=== PATIENT | female | born 1975 | race African-American/Black ===

== ENCOUNTER 2020-08-12 15:23 | Outpatient (CLI) | payer OTHER, SELFPAY ==
--- NOTE | ~2020-08-12 | MM_ITS ---
EXAMINATION: MM screening eliana BI w jarred HISTORY: Screening TECHNIQUE: Craniocaudal and mediolateral oblique 3-D tomosynthesis images were obtained and synthetic 2-D images were generated. CAD analysis was submitted and interpreted. COMPARISON: Comparison to multiple prior studies sequentially, with oldest reviewed study dated 05/18. BREAST PARENCHYMAL COMPOSITION: There are scattered areas of fibroglandular density. FINDINGS: There are stable benign-appearing right breast calcifications. There is no evidence of susp icious mass, calcification, or architectural distortion to suggest malignancy in either breast. There has been no suspicious interval change. IMPRESSION: 1. No mammographic evidence of malignancy. 2. Recommend routine screening mammography in one year. BI-RADS Category 1: Negative Reviewed, dictated and finalized at location A. OTYPIST
== END 2020-08-12 15:24 | disposition home or self-care (01) ==
LOC: ANHIMG 15:24
PROVIDERS: PCP Family Medicine; Visit Provider Obstetrics & Gynecology
DX: Z12.31 Encounter for screening mammogram for malignant neoplasm of breast (principal)
CPT/HCPCS: 77063; 77067

== ENCOUNTER 2021-08-14 15:53 | Outpatient (CLI) | payer OTHER, SELFPAY ==
--- NOTE | ~2021-08-14 | MM_ITS ---
EXAMINATION: MM screening eliana BI w jarred HISTORY: Screening mammogram TECHNIQUE: Craniocaudal and mediolateral oblique 3-D tomosynthesis images were obtained and synthetic 2-D images were generated. CAD analysis was submitted and interpreted. COMPARISON: 08/12/2020 BREAST PARENCHYMAL COMPOSITION: The breasts are almost entirely fatty. FINDINGS: There is no evidence of suspicious mass, calcification, or architectural distortion to sugg est malignancy in either breast. There has been no suspicious interval change. IMPRESSION: 1. No mammographic evidence of malignancy. 2. Recommend routine screening mammography in one year. BI-RADS Category 1: Negative Reviewed, dictated and finalized at location A. CATION NURSE
== END 2021-08-14 15:54 | disposition home or self-care (01) ==
LOC: ANHIMG 15:54
PROVIDERS: PCP Family Medicine; Visit Provider Obstetrics & Gynecology
DX: Z12.31 Encounter for screening mammogram for malignant neoplasm of breast (principal)
CPT/HCPCS: 77063; 77067

== ENCOUNTER 2021-08-20 00:28 | Day surgery (SDC) | payer OTHER, SELFPAY ==
[2021-08-08 12:10] VITALS: BMI 46.7
[2021-08-20 10:51] VITALS: BP 172/85; PULSE 84; RESP 18; TEMP 36.1; O2SAT 100
--- NOTE | 2021-08-20 11:04 | P.PNAN_ITS ---
Anes - Initial Pre Proc Eval Procedure: Operation Date: 08/20/21 12:30 Proposed Procedures p Screening Colonoscopy - Alejandro Hoover MD Date/Time: 08/20/21 11:04 Surgeon: Alejandro Hoover MD Pre Op Diagnosis: neoplasm screening Patient Data Age: 46 Gender: F Height: 1.8 m Weight: 156.2 kg Last Vital Signs Temp 97 F L 08/20/21 10:51 Pulse 84 08/20/21 10:51 Resp 18 08/20/21 10:51 BP 172/85 H 08/20/21 10:51 Pulse Ox 100 08/20/21 10:51 Allergies Allergy/AdvReac Type Severity Reaction Status Date / Time No Known Allergies Allergy Mild Verified 08/20/21 10:49 Home Medications Medication Instructions Recorded Confirmed Type insulin glargine 100 unit/mL (3 44 unit SUBCUT BID 07/04/20 08/08/21 History mL) subcutaneous pen metformin 1,000 mg tablet 1,000 mg PO BID 07/04/20 08/08/21 History montelukast 10 mg tablet 10 mg PO DAILY 07/04/20 08/08/21 History amlodipine 5 mg tablet 5 mg PO DAILY 07/08/21 08/20/21 History insulin lispro 100 unit/mL 16 unit SUBCUT TID 07/08/21 08/08/21 History subcutaneous pen Patient hx anesthesia problems: none Family hx anesthesia problems: none Results Review: All pre-operative results and documents have been reviewed as part of the pre-operative evaluation. [facility] Past Medical History Medical History Diabetes Hypertension Surgical History Surgical History Previous section x 2 Tubal ligation status Family History Family History Father Hypertension Cerebrovascular accident, Onset Age: 70 Family history of diabetes mellitus in first degree relative Patient's father is Mother Family history of elevated blood lipids Family history of kidney disease Grandparent Family history of malignant neoplasm of breast Social History Social History (Updated 07/08/21 @ 13:22 by Mere Scott CMA) Smoking status: Former smoker Tobacco type: cigarettes Second hand tobacco smoke exposure: No Alcohol intake: never Alcohol use details: occasionally Living arrangements: with family Spiritual care concerns: No Anes - Eval Final PreProcedure Day of Procedure 08/20/21 11:04 Patient weight: morbidly obese Heart: regular rate and rhythm Lungs: clear to auscultation Airway: Mallampati scale class III Neurological: alert and oriented Last oral intake: >/= 8 hours ASA classification: III Emergent: no Anesthetic plan: proceed Anesthesia type and monitoring: general GIVS and standard monitoring Results Review: All pre-operative results and documents have been reviewed as part of the pre-operative evaluation. Informed Consent: The patient's anesthetic plan and its attendant risks and benefits were discussed with the patient/family/POA. Questions were solicited and answers provided to the satisfaction of the patient/family/POA.
[2021-08-20] MEDS: LACTATED RINGERS 1,000 ML 150 ML IV CONT (11:10)
--- NOTE | 2021-08-20 11:10 | PM.HPGS ---
History of Present Illness History of Present Illness Consent: Risks, benefits, and alternatives have been discussed and questions answered. Patient agrees to proceed with procedure. Chief complaint: neoplasm screening Narrative: Henny Hudson is a 46 year old female here for first screening colonoscopy Review of Systems Constitutional: Constitutional: Denies headache(s) and Denies weakness Eyes: Eyes: Denies blurry vision ENT: Reports Normal hearing present, Denies headache(s) and Denies neck pain Cardiovascular: Cardiovascular: Denies chest pain and Denies dyspnea Respiratory: Respiratory: Denies dyspnea Gastrointestinal: Gastrointestinal: Reports no additional gastrointestinal complaints Genitourinary: Genitourinary: Denies dysuria Musculoskeletal: Musculoskeletal: Denies neck pain Integumentary/Breasts: Skin/Breast: Denies dry skin Neurologic: Reports Normal hearing present, Denies headache(s) and Denies weakness Psychiatric: Psychiatric: Denies anxiety Endocrine: Endocrine: Denies change in body appearance Hematologic/Lymphatic: Hematologic/Lymphatic: Denies easy bleeding Allergic/Immunologic: Allergic/Immunologic: Denies urticaria PMF Past Medical History Medical History (Updated 08/20/21 @ 11:11 by Alejandro Hoover MD) Colon cancer screening Diabetes Hypertension Surgical History Surgical History Previous section x 2 Tubal ligation status Family History Family History Father Hypertension Cerebrovascular accident, Onset Age: 70 Family history of diabetes mellitus in first degree relative Patient's father is Mother Family history of elevated blood lipids Family history of kidney disease Grandparent Family history of malignant neoplasm of breast Social History Social History (Updated 07/08/21 @ 13:22 by Mere Scott CMA) Smoking status: Former smoker Tobacco type: cigarettes Second hand tobacco smoke exposure: No Alcohol intake: never Alcohol use details: occasionally Living arrangements: with family Spiritual care concerns: No Meds Home Medications and Allergies Home Medications Medication Instructions Recorded Confirmed Type insulin glargine 100 unit/mL (3 44 unit SUBCUT BID 07/04/20 08/08/21 History mL) subcutaneous pen metformin 1,000 mg tablet 1,000 mg PO BID 07/04/20 08/08/21 History montelukast 10 mg tablet 10 mg PO DAILY 07/04/20 08/08/21 History amlodipine 5 mg tablet 5 mg PO DAILY 07/08/21 08/20/21 History insulin lispro 100 unit/mL 16 unit SUBCUT TID 07/08/21 08/08/21 History subcutaneous pen Allergies Allergy/AdvReac Type Severity Reaction Status Date / Time No Known Allergies Allergy Mild Verified 08/20/21 10:49 Vital Signs Vital Signs - 24 hr 08/20/21 10:51 Temperature 97 F L Pulse Rate 84 Respiratory Rate 18 Blood Pressure 172/85 H Pulse Oximetry 100 Exam Const: General: comfortable and no acute distress HENMT: General nose exam: Normal nares present Eyes: General: appearance normal, both eyes and all related structures Neck: Neck: no JVD Resp: Auscultation: clear to auscultation bilaterally Cardio: Rate: regular rate Rhythm: regular rhythm GI: Inspection: non-distended GI Palp: Yes Soft to palpation Skin: General skin exam: normal color Neuro: General: gait normal Speech: normal speech Extrem: General: normal to inspection Psych: Mental Status: mental status grossly normal Assessment and Plan Assessment and plan (1) Colon cancer screening: Code(s): Z12.11 - Encounter for screening for malignant neoplasm of colon Status: Acute Assessment and Plan: colonoscopy
[2021-08-20 11:12] LABS: Glucose Point of Care 230 mg/dl (65-105)
[2021-08-20 11:27] VITALS: BP 150/120; PULSE 106; RESP 24; O2SAT 99
[2021-08-20 11:37] VITALS: BP 152/93; PULSE 101; RESP 19; O2SAT 100
[2021-08-20 11:44] LABS: Glucose Point of Care 231 mg/dl (65-105)
[2021-08-20 11:47] VITALS: BP 174/107; PULSE 104; RESP 27; O2SAT 100
== END 2021-08-20 11:52 | disposition home or self-care (01) ==
PROVIDERS: PCP Family Medicine; Visit Provider Internal Medicine Gastroenterology
PROC: 0DJD8ZZ Inspection of Lower Intestinal Tract, Via Natural or Artificial Opening Endoscopic (ICD-10-PCS; CPT 45378; principal; 2021-08-20 12:30)
DX: Z12.11 Encounter for screening for malignant neoplasm of colon (principal); E11.9 Type 2 diabetes mellitus without complications; I10 Essential (primary) hypertension; K64.8 Other hemorrhoids
CPT/HCPCS: 45378; 82948; J2704; J7120

== ENCOUNTER 2022-10-15 15:09 | Outpatient (CLI) | payer OTHER, SELFPAY ==
--- NOTE | ~2022-10-15 | MM_ITS ---
EXAMINATION: MM screening eliana BI w jarred HISTORY: Screening mammogram TECHNIQUE: Craniocaudal and mediolateral oblique 3-D tomosynthesis images were obtained and synthetic 2-D images were generated. CAD analysis was submitted and interpreted. COMPARISON: 08/14/2021, 08/12/2020, 08/10/2018 bilateral screening mammogram examinations BREAST PARENCHYMAL COMPOSITION: The breasts are almost entirely fatty. FINDINGS: There is no evidence of suspicious mass, calcification, or architectural distortion to sugg est malignancy in either breast. There has been no suspicious interval change. IMPRESSION: 1. No mammographic evidence of malignancy. 2. Recommend routine screening mammography in one year. BI-RADS Category 1: Negative Reviewed, dictated and finalized at location A. BOOKKEEPER
== END 2022-10-15 15:10 | disposition home or self-care (01) ==
PROVIDERS: PCP Family Medicine; Visit Provider Obstetrics & Gynecology
DX: Z12.31 Encounter for screening mammogram for malignant neoplasm of breast (principal)
CPT/HCPCS: 77063; 77067

== ENCOUNTER 2024-02-28 14:01 | Outpatient (CLI) | payer OTHER, SELFPAY ==
--- NOTE | ~2024-02-28 | MM_ITS ---
EXAMINATION: MM screening eliana BI w jarred HISTORY: Screening mammogram TECHNIQUE: Craniocaudal and mediolateral oblique 3-D tomosynthesis images were obtained and synthetic 2-D images were generated. CAD analysis was submitted and interpreted. COMPARISON: 10/15/2022, 08/14/2021, 08/12/2020 BREAST PARENCHYMAL COMPOSITION:Not Dense. The breasts are almost entirely fatty FINDINGS: No suspicious mass, calcification, or architectural distortion are identified in either marilu ast to suggest malignancy. There has been no suspicious interval change. IMPRESSION: No mammographic evidence of malignancy. Recommend routine screening mammography in one year. BI-RADS Category 1: Negative Reviewed, dictated and finalized at location .
== END 2024-02-28 14:02 | disposition home or self-care (01) ==
LOC: ANHIMG 14:02
PROVIDERS: PCP Family Medicine; Visit Provider Obstetrics & Gynecology
DX: Z12.31 Encounter for screening mammogram for malignant neoplasm of breast (principal)
CPT/HCPCS: 77063; 77067

== ENCOUNTER 2025-05-09 15:20 | Outpatient (CLI) | payer OTHER, SELFPAY ==
--- NOTE | ~2025-05-09 | MM_ITS ---
EXAMINATION: MM screening eliana BI w jarred HISTORY: Screening TECHNIQUE: Craniocaudal and mediolateral oblique 3-D tomosynthesis images were obtained and synthetic 2-D images were generated. CAD analysis was submitted and interpreted. COMPARISON: Comparison to multiple prior studies sequentially, with oldest reviewed study dated , 08/10/2018 BREAST PARENCHYMAL COMPOSITION: The breasts are almost entirely fatty. FINDINGS: There is no evidence of suspicious mass, calcification, or architectural distortion to suggest malignancy in either breast. IMPRESSION: 1. No mammographic evidence of malignancy. 2. Recommend routine screening mammography in one year. BI-RADS Category 1: Negative Reviewed, dictated and finalized at location B.
--- OUTSIDE RECORDS SUMMARY | 2025-05-09 15:44 | XMS_ITS | Clinical Summary ---
Author Organization [facility] Address [address] [place] [address] Care Team Providers Care Binder Operator Name Role Phone Suhail Rice MD Primary Care Provider [phone] Source Comments [facility],non-owned Affiliates and Associated Physician Practices is amultiple site organization consisting of ambulatory clinics and hospital sitesin [place], [place], [place] and [place]. This disclosure is being madepursuant to the Care Everywhere program and may not contain all information available regarding this patient. Last updated 18.[facility] Allergies Active Allergy Reactions Criticality Noted Date Comments Lisinopril Rash Medium 09/09/2018 Medications * Be aware that medications may not be up to date on this document. Alwaysverify current medications with the patient. BASAGLAR KWIKPEN (BASAGLAR) pen Inject 80 (eighty) Units subcutaneously 2 times daily 08/01/20 18 Active B-D ULTRAFINE III SHORT PEN 31G X 8 MM needle 08/31/19 19 Active metFORMIN (GLUCOPHAGE) 1000 MG tablet Take 1 (one) tablet by mouth 2 times daily with morning and evening meal 08/29/20 18 Active amLODIPine (Norvasc) 10 MG tablet amlodipine 10 mg tablet TAKE 1 TABLET BY MOUTH EVERY DAY Active Continuous Blood Gluc Road Supervisor (Dexcom G6 Road Supervisor) DEEJAY Dexcom G6 Road Supervisor USE WITH TRANSMITTER AND SENSOR Active Continuous Blood Gluc Sensor (Dexcom G6 Sensor) MISC Dexcom G6 Sensor device CHANGE EVERY 10 DAYS Active Continuous Blood Gluc Transmit (Dexcom G6 Transmitter) [facility] [place] Dexcom G6 Transmitter device CHANGE EVERY 3 MONTHS Active Lancets (ONETOUCH DELICA PLUS 33G EXTRA FINE LANCET) OneTouch Delica Plus Lancet 33 gauge TEST BLOOD GLUCOSE FOUR TIMES DAILY Active Lancet Devices (OneTouch Delica Plus Lancing) [facility] [place] OneTouch Delica Plus Lancing Device kit USE TO MONITOR BLOOD SUGAR FOUR TIMES DAILY Active blood glucose (OneTouch Ultra) test strip OneTouch Ultra Test strips USE TO TEST FOUR TIMES DAILY Active Insulin Pen Needle (TRUEplus Pen Lynn) 32G X 4 MM [facility] [place] TRUEplus Pen Needle 32 gauge x 5/32 USE FOUR TIMES DAILY Active rosuvastatin (Crestor) 20 MG tablet Take 1 (one) tablet by mouth once daily 07/29/20 22 Active losartan (Cozaar) 50 MG tablet losartan 50 mg tablet TAKE 1 TABLET BY MOUTH EVERY DAY IN THE MORNING Active Ketostix strip TEST URINE FOR KETONES IF BLOOD SUGAR IS OVER 250 OR IF YOU FEEL SICK. CALL OFFICE IF MODERATE AMOUNTS OF KETONES ARE PRESENT 08/21/20 22 Active OneTouch Ultra test strip USE TO TEST FOUR TIMES DAILY 08/24/20 22 Active dapagliflozin propanediol (Farxiga) 10 MG tablet every 24 hours Activ e Glucagon (Baqsimi One Pack) 3 MG/DOSE POWD Baqsimi 3 mg/actuation nasal spray Active Gvoke HypoPen 2-Pack 1 MG/0.2ML SOAJ INJECT 1 MG UNDER THE SKIN NEEDED FOR 1 DAY 09/28/19 23 Active HumaLOG 100 UNIT/ML vial USE UP TO 150 UNITS IN INSULIN PUMP DAILY 10/02/19 23 Active TRUEplus 5-Bevel Pen Lynn 32G X 4 MM [facility] [place] USE FOUR TIMES DAILY 07/27/20 22 Active cyanocobalamin (Vitamin B-12) injection Inject 1,000 (one thousand) mcg subcutaneously as directed 12/02/19 23 Active Trulicity 3 MG/0.5ML injection Inject 3 mg subcutaneously every 7 days 12/04/19 23 Active azelastine (Astelin) 0.1 % nasal sprayIndication s:Perennial Allergic Rhinitis,Season al Allergic Rhinitis [place] 1 (one) spray into each nostril 2 times daily Reasons: Hayfever, Perennial Allergic Rhinitis 30 mL 11 12/11/19 23 Active fluticasone propionate (Flonase) 50 MCG/ACT nasal sprayIndication s:Allergic Rhinitis,Nasal Signs and Symptoms [place] 2 (two) sprays into each nostril once daily Reasons: Allergic Rhinitis, Signs and Symptoms of Nose Diseases 18.2 g 11 12/11/19 23 Active montelukast (Singulair) 10 MG tablet TAKE 1 TABLET BY MOUTH AT BEDTIME 30 tablet 11 12/03/19 24 Active cetirizine (ZyrTEC) 10 MG tablet TAKE 1 TABLET BY MOUTH EVERY DAY 90 tablet 11/28/19 25 Active Active Problems Problem Noted Date Diagnosed Date Hepatic steatosis 07/28/2022 Overview (10/09/2022): US LIVER 08/27/22 IMPRESSION: 1. Hepatic steatosis and hepatomegaly. 2. Otherwise negative right upper quadrant ultrasound. Irregular menstrual cycle 10/20/2019 Uterine leiomyoma 10/20/2019 Allergic rhinitis 10/20/2019 DAT (obstructive sleep apnea) 10/07/2018 Overview (10/09/2022): Obstructive Sleep Apnea (AHI=11.2 respiratory events/h; Ras SaO2=86%; SaO2 below 88%=0.3% of night; Efficiency=93/95%; Stage R=22%; xqhx=294 kg; Salus 07 Oct 2018) Type 2 diabetes mellitus wit h hyperglycemia, with long-term current use of insulin 09/18/2018 Hypertension, secondary 09/18/2018 Sleep related leg cramps 09/18/2018 Encounters Date Type Department Care Team Description 02/15/2025 Refill [facility] - ENT [address] [place] [id number] Chester Jay MD Refill Request from Last 3 Months Immunizations Immunization Administration Dates Next Due HEP B VACCINE, ADULT 3 DOSE 04/07/2017, 6,07/15/2016 INFLUENZA VACCINE 05/30/2018,06/18/2010 INFLUENZA VACCINE, QUADR. (A FLURIA, FLUZONE QUADRIVALENT; 6MO+) (IIV4) 06/22/2019,06/10/2017,07/15/2016 INFLUENZA VACCINE, QUADR. (F LUZONE; FLULAVAL; FLUARIX; AFLURIA QUADRIVALENT; 6MO+), 0.5 ML (IIV4) 05/13/2022,06/05/2021,05/22/2020 PNEUMOCOCCAL PPSV23 04/25/2015 TDAP (7yrs+) 08/26/2016,08/20/2016 Family History Medical History Relation Name Comments Diabetes - Type 2 Father Thyroid Disease Neg Hx Relation Name Status Comments Father Social History Tobacco Use Types Packs/Day Years Used Date Smoking Tobacco: Never Smokeless Tobacco: Never Tobacco Cessation:Counseling Given: Not Answered Alcohol Use Standard Drinks/Week Comments Yes 1 (1 standard drink = 0.6 oz pur e alcohol) ocassionally Comments No Sex and Gender Information Value Date Recorded Sex Assigned at Female 07/14/2021 12:06 AM AIRLINE COUNTER AGENT Legal Sex Female 12:44 PM CDT Gender Identity Female 07/14/2021 12:06 AM AIRLINE COUNTER AGENT Sexual Orientation Straight 07/14/2021 12 :06 AM AIRLINE COUNTER AGENT Last Filed Vital Signs Vital Sign Reading Time Taken Comments Blood Pressure 139/84 12/10/2022 3:44 PM CDT Pulse 88 12/10/2022 3:44 PM CDT Temperature - - Respiratory Rate - - Oxygen Saturation - - Inhaled Oxygen Concentration - - Weight 153.3 kg (338 lb) 12/10/2022 3:44 PM CDT Height 180.3 cm (5' 11) 12/10/2022 3:44 PM CDT Body Mass Index 47.14 12/10/2022 3:44 PM CDT Plan of Treatment Health Maintenance Due Date Last Done Comments COLOGUARD (AGES 45-75) - COLON CA SCREENING 1975 COLON MONITORING 1975 COLONOSCOPY - COLON CA SCREENING 1975 CT COLONOGRAPHY - COLON CA SCREENING 1975 Colorectal Cancer Screening 1975 FIT - COLON CA SCREENING 1975 FLEX SIG - COLON CA SCREENING 1975 MAMMOGRAM 1975 HIV SCREENING 1990 HEPATITIS C SCREENING 05/16/1993 DIABETES-SERUM CREATININE 1993 PAP SMEAR 1996 DIABETES RETINOPATHY SCREENING 10/19/2018 DIABETES-FOOT EXAM WITH MONOFILAMENT 10/19/2018 DIABETES-HGB A1C 10/19/2018 DEPRESSION SCREENING 08/30/2024 DIABETES - URINE PROTEIN SCREENING 08/30/2024 COVID-19 VACCINE ( season) 2025 10/07/2021, 02/01/2021, 01/11/2021 INFLUENZA VACCINE (#1) 2025 , 05/18/2023, 05/13/2022, Additional history exists ZOSTER VACCINE (1 of 2) 2025 DTAP/TDAP/TD VACCINES (3 - Td or Tdap) 08/26/2026 08/26/2016, 08/20/2016 HEPATITIS B VACCINE Completed 04/07/2017, 08/19/2016, 07/15/2016 HIB VACCINE Aged Out No longer eligi ble based on patient's age to complete this topic HPV VACCINE Aged Out No longer eligi ble based on patient's age to complete this topic MENINGOCOCCAL (Group B) VACCINE SHARED DECISION-MAKING Aged Out No longer eligible based on patient's age to complete this topic MENINGOCOCCAL GROUPS A/C/Y/W VACCINE Aged Out No longer eligible based on patient's age to complete this topic Insurance [facility] Care Teams Binder Operator Relationship Specialty Start Date End Date Suhail Rice MD PCP - General 07/27/18
--- OUTSIDE RECORDS SUMMARY | 2025-05-09 15:44 | XMS_ITS | Clinical Summary ---
Author Organization [facility] Address [address] [place] [id number] Care Team Providers Care Wildlife Conservationist Name Role Phone Suhail Rice MD Primary Care Provider [phone] Allergies No known active allergies Medications naproxen (NAPROSYN) 500 mg tablet Take 1 tablet (500 mg total) by mouth 2 (two) times a day with meals 30 tablet 01/25/2024 Active cyclobenzaprine (FLEXERIL) 10 mg tablet Take 1 tablet (10 mg total) by mouth 2 (two) times a day as needed for muscle spasms 20 tablet 01/25/2024 Active Social History Tobacco Use Types Packs/Day Years Used Date Smoking Tobacco: Never Assessed Personal Safety Answer Date Recorded Have you ever been in or are you currently in a harmful physical or emotional relationship or is someone making you feel afraid or unsafe? Denies 01/25/2024 Comments Unknown Sex and Gender Information Value Date Recorded Sex Assigned at Not on file Legal Sex Female 12:48 AM BIRD TENDER Gender Identity Not on file Sexual Orientation Not on file Last Filed Vital Signs Vital Sign Reading Time Taken Comments Blood Pressure 132/86 01/25/2024 2:00 PM CDT Pulse 92 01/25/2024 2:00 PM CDT Temperature 36.9 C (98.4 F) 01/25/2024 11:46 AM CDT Respiratory Rate 18 01/25/2024 2:00 PM CDT Oxygen Saturation 94% 01/25/2024 2:00 PM CDT Inhaled Oxygen Concentration - - Weight 146.5 kg (322 lb 15.6 oz) 2023 11:46 AM CDT Height 180.3 cm (5' 11) 01/25/2024 11: 46 AM CDT Body Mass Index 45.05 01/25/2024 11:46 AM CDT Plan of Treatment Health Maintenance Due Date Last Done Comments Breast Cancer Screening-Mammogram 1975 Cervical Cancer Screening 1975 Colon Cancer Screening-Colonoscopy 1975 Depression Screening 1975 Hepatitis C Screening 1975 Regular Well Visit/Exam 18-64 1993 Covid-19 Vaccine ( season) 2024 10/07/2021, 02/01/2021, 01/11/2021 Influenza Vaccine (#1) 2025 , 06/05/2021, 05/22/2020, Additional history exists DTaP/Tdap/Td Vaccine (3 - Td or Tdap) 08/26/2026 08/26/2016, 08/20/2016 Pneumococcal vaccine <65 Aged Out 04/25/2015 No longer eligible based on patient's age to complete this topic Hepatitis B Screening Completed 04/07/2017 , 08/19/2016, 07/15/2016 Insurance [facility] Care Teams Wildlife Conservationist Relationship Specialty Start Date End Date Suhail Rice MD [id number] [address] PCP - General Emergency Medicine 08/10/22
--- OUTSIDE RECORDS SUMMARY | 2025-05-09 15:44 | XMS_ITS | Clinical Summary ---
Author Organization [facility] Address [address] [place] [address] Care Team Providers Care Surveyor Helper Rod Name Role Phone Suhail Rice MD Primary Care Provider [phone] Social History Tobacco Use Types Packs/Day Years Used Date Smoking Tobacco: Never Assessed Comments Unknown Sex and Gender Information Value Date Recorded Sex Assigned at Not on file Legal Sex Female 4:24 PM CDT Gender Identity Not on file Sexual Orientation Not on file Plan of Treatment Health Maintenance Due Date Last Done Comments Cervical Cancer Screening Pa p Smear (Age 30 to 64) Every 3 Years 1975 Colorectal Cancer Screening Colonoscopy (10 Years) 1975 Annual Physical 1978 Hepatitis C 1993 DTaP, Tdap and Td Vaccines ( 1 - Tdap) 1994 Hepatitis B Vaccines (1 of 3 - 19+ 3-dose series) 1994 Cervical Cancer Screening Pa p with HPV Testing (Age 30 to 64) Every 5 Years 2005 Cervical Cancer Screening with HPV 2005 Mammogram Screening 2015 COVID-19 Vaccine (2023-2 5 season) 2025 Meningococcal B Vaccine Aged Out No l onger eligible based on patient's age to complete this topic Meningococcal Vaccine Aged Out No estela grayson eligible based on patient's age to complete this topic Pneumococcal Vaccine: Pediat rics (0 to 5 Years) and At-Risk Patients (6 to 49 Years) Aged Out No longer eligible b ased on patient's age to complete this topic RSV Immunizations Under 20 Months Aged Out No longer eligible based on patient's age to complete this topic Insurance [facility] Care Teams Surveyor Helper Rod Relationship Specialty Start Date End Date Suhail Rice MD PCP - General 02/11/17
--- OUTSIDE RECORDS SUMMARY | 2025-05-09 15:44 | XMS_ITS | Clinical Summary ---
Author Organization [facility] Address [address] [place] [address] Phone Care Team Providers Care High Speed Printer Operator Name Role Phone Provider, Unknown Primary Care Provider Unavaila ble Social History Tobacco Use Types Packs/Day Years Used Date Smoking Tobacco: Never Assessed Comments Unknown Sex and Gender Information Value Date Recorded Sex Assigned at Not on file Legal Sex Female 4:34 PM CDT Gender Identity Not on file Sexual Orientation Not on file Plan of Treatment Health Maintenance Due Date Last Done Comments Hepatitis C Virus (HCV) Screening 1975 TdaP Immunization 1975 Hepatitis B Immunization (1 of 3 - 19+ 3-dose series) 1994 Pap Smear 1996 Cervical Cancer Screening (CCS) 2005 HPV/Cotest 2005 Cologuard 2020 Colonoscopy 2020 Colorectal Cancer Screening 2020 Immunochemical Fecal Occult Blood 2020 SARS-COV-2 Immunization ( season) 2024 Influenza Immunization (#1) 2025 Respiratory Syncytial Virus (RSV) Immunization (Adult) (1 - 1-dose 75+ series) 2050 Human Papillomavirus (HPV) Immunization Aged Out No longer eligible b ased on patient's age to complete this topic Meningococcal Immunization (ACWY) Aged Out No longer eligible based on patient's age to complete this topic Pneumococcal Immunization Combined Aged Out No longer eligible based on patient's age to complete this topic Rotavirus Immunization Aged Out No lo nger eligible based on patient's age to complete this topic Insurance MEDICAID [employer] Care Teams High Speed Printer Operator Relationship Specialty Start Date End Date Provider, Unknown UNKNOWN PCP - General 06/15/16
== END 2025-05-09 15:21 | disposition home or self-care (01) ==
LOC: ANHFOHIMG 15:21
PROVIDERS: PCP Family Medicine; Visit Provider Obstetrics & Gynecology
DX: Z12.31 Encounter for screening mammogram for malignant neoplasm of breast (principal)
CPT/HCPCS: 77063; 77067